=== PATIENT | male | born 1960 | race Caucasian/White ===

== ENCOUNTER 2016-05-03 19:58 | Emergency (ER) | payer BC ==
[~2016-05-03] VITALS: Ht 167.6 cm; Wt 90.9 kg
[~2016-05-03 19:58] MED LIST: ADULT LOW DOSE81 M1 PO; AMARYL2 MG PO; ARICEPT10 MG PO; ARICEPT5 MG; ASPIR-LOW81 MG PO; ATENOLOL/CHLOR1 EAC1 PO; ATENOLOL25 M1; BENTYL20 MG PO; BUSPAR15 MG PO; FENOFIBRATE160 M1 PO; FLEXERIL10 MG PO; HUMALOG100 UNIT/1 SC; HUMALOG100 UNIT/2 SC; JANUMET 50/11 TABLET; JANUMET 50/11 TABLET PO; KEFLEX500 MG PO; LANTUS 3 M100 UNITS1 SC; LISINOPRIL20 MG PO; LORTAB 5-325 M1 EACH PO; NAPROSYN500 MG PO; NIASPAN,SLO-N1000 MG PO; NIZORAL 2% CREA15 GM TP; OMEGA-31000 M1 PO; PRAVACHOL80 MG PO; PREVACID30 MG PO; PRILOSEC; PRILOSEC10 MG PO; PRINIVIL20 MG PO; SINGULAIR10 MG PO; TENORETIC 501 TABLET PO; VENTOLIN HFA18 GM IH; VITAMIN D31000 UNIT PO; ZESTRIL,PRINIV2.5 MG; ZITHROMAX Z-PA250 MG PO; ZOFRAN4 MG PO
[2016-05-03 23:26] LABS: HEMATOCRIT 39.7 % (38.0-50.0); MCH 29.7 PG (29.0-34.0); MCHC 36.8 G/DL (30.0-36.0); MCV 80.9 FL (86-99); MEAN PLAT.VOLUME 9.4 uM^3 (9.0-12.4); PLATELET COUNT 198 K/uL (156-360); RBC DIS.WIDTH-CV 11.8 % (11.8-14.6); RED BLOOD COUNT 4.91 M/uL (4.00-5.50); WHITE BLOOD COUNT 6.3 K/uL (4.1-10.2)
[2016-05-03 23:28] LABS: INFLUENZA A VIRAL ANTIGEN POSITIVE; INFLUENZA B VIRAL ANTIGEN NEGATIVE
[2016-05-03 23:37] LABS: CHLORIDE 99 mEq/L (99-109); POTASSIUM 3.9 mEq/L (3.7-5.4); SODIUM 134 mEq/L (136-147)
[2016-05-03 23:39] LABS: GLUCOSE 258 mg/dL (70-99)
[2016-05-03 23:40] LABS: ANION GAP 11 MEQ/L (2-14)
[2016-05-03 23:43] LABS: GFR ESTIMATE (CALCULATED) > 59 mL/min/
[2016-05-03 23:44] LABS: UREA NITROGEN (BUN) 17 mg/dL (9-23)
[2016-05-03 23:47] LABS: TROP-I INTERPRETATION NEGATIVE; TROPONIN-I < 0.01 ng/mL (0.0-0.30)
[2016-05-04] MEDS ORDERED: ROBITUSSIN AC,T10 ML PO (00:04)
[2016-05-04] MEDS ORDERED: MOTRIN600 MG PO (00:04)
[2016-05-04 00:34] VITALS: BP 152/85
== END 2016-05-04 00:36 | disposition home or self-care (01) ==
LOC: EXP 19:58 → EME 19:58 → EXP 05-04 00:36
PROVIDERS: Physician Assistant
DX: J10.1 Influenza due to other identified influenza virus with other respiratory manifestations (principal); E11.9 Type 2 diabetes mellitus without complications; Z79.84 Long term (current) use of oral hypoglycemic drugs; Z79.4 Long term (current) use of insulin; E78.5 Hyperlipidemia, unspecified; I10 Essential (primary) hypertension; Z85.038 Personal history of other malignant neoplasm of large intestine; Z88.7 Allergy status to serum and vaccine
CPT/HCPCS: 71020; 80048; 84484; 85027; 87502; 87651 90; 93005; 99281; 99284

== ENCOUNTER 2016-06-30 18:15 | Emergency (ER) | payer BC ==
[~2016-06-30] VITALS: Ht 170.2 cm; Wt 89.9 kg
[~2016-06-30 18:15] MED LIST changes: +MOTRIN600 MG PO; +ROBITUSSIN AC,T10 ML PO
[2016-06-30 19:18] LABS: HEMATOCRIT 46.1 % (38.0-50.0); MCH 29.5 PG (29.0-34.0); MCHC 34.5 G/DL (30.0-36.0); MCV 85.5 FL (86-99); MEAN PLAT.VOLUME 9.5 uM^3 (9.0-12.4); PLATELET COUNT 257 K/uL (156-360); RBC DIS.WIDTH-CV 11.9 % (11.8-14.6); RBC DIS.WIDTH-SD 36.5 % (39-53); RED BLOOD COUNT 5.39 M/uL (4.00-5.50); WHITE BLOOD COUNT 6.5 K/uL (4.1-10.2)
[2016-06-30 19:32] LABS: CHLORIDE 101 mEq/L (99-109); POTASSIUM 4.1 mEq/L (3.7-5.4); SODIUM 136 mEq/L (136-147)
[2016-06-30 19:34] LABS: GLUCOSE 221 mg/dL (70-99)
[2016-06-30 19:35] LABS: ANION GAP 9 MEQ/L (2-14)
[2016-06-30 19:38] LABS: GFR ESTIMATE (CALCULATED) > 59 mL/min/; UREA NITROGEN (BUN) 18 mg/dL (9-23)
[2016-06-30 19:42] LABS: TROP-I INTERPRETATION NEGATIVE; TROPONIN-I < 0.01 ng/mL (0.0-0.30)
[2016-06-30 21:19] VITALS: BP 143/90
== END 2016-06-30 21:24 | disposition home or self-care (01) ==
LOC: EME 18:15
DX: M54.12 Radiculopathy, cervical region (principal); M25.512 Pain in left shoulder; R51 Headache; I10 Essential (primary) hypertension; E11.9 Type 2 diabetes mellitus without complications; Z79.4 Long term (current) use of insulin; Z79.82 Long term (current) use of aspirin
CPT/HCPCS: 71020; 80048; 84484; 85027; 93005; 99281; 99284; J1885

== ENCOUNTER 2016-09-27 20:52 | Emergency (ER) | payer BC ==
[~2016-09-27] VITALS: Ht 167.6 cm; Wt 88.5 kg
[2016-09-27 21:33] LABS: HEMATOCRIT 43.1 % (38.0-50.0); MCH 29.4 PG (29.0-34.0); MCHC 34.8 G/DL (30.0-36.0); MCV 84.5 FL (86-99); MEAN PLAT.VOLUME 9.4 uM^3 (9.0-12.4); PLATELET COUNT 249 K/uL (156-360); RBC DIS.WIDTH-CV 11.9 % (11.8-14.6); RBC DIS.WIDTH-SD 35.9 % (39-53)
[2016-09-27 21:41] LABS: CHLORIDE 99 mEq/L (99-109); POTASSIUM 4.1 mEq/L (3.7-5.4); SODIUM 135 mEq/L (136-147)
[2016-09-27 21:42] LABS: GLUCOSE 333 mg/dL (70-99)
[2016-09-27 21:44] LABS: ANION GAP 8 MEQ/L (2-14)
[2016-09-27 21:46] LABS: GFR ESTIMATE (CALCULATED) 48 mL/min/
[2016-09-27 21:47] LABS: UREA NITROGEN (BUN) 19 mg/dL (9-23)
[2016-09-27 21:53] LABS: TROP-I INTERPRETATION NEGATIVE; TROPONIN-I < 0.01 ng/mL (0.0-0.30)
[2016-09-27 22:36] LABS: ADD MIUA? NO; BILIRUBIN NEGATIVE; BLOOD NEGATIVE; COLOR STRAW ((YELLOW)); GLUCOSE (STRIP) >=500; KETONES NEGATIVE; LEUKOCYTES NEGATIVE; NITRITE NEGATIVE; PROTEIN (STRIP) NEGATIVE; SPECIFIC GRAVITY 1.021 (1.000-1.030); UCUL ADDED? NO; UROBILINOGEN 0.2 MG/DL (0.2-1.0)
[2016-09-27] MEDS ORDERED: PERCOCET 5/31 TABLET PO (23:27)
[2016-09-27 23:40] VITALS: BP 110/73
== END 2016-09-27 23:51 | disposition home or self-care (01) ==
LOC: EME 20:52
PROVIDERS: Physician Assistant
DX: R10.32 Left lower quadrant pain (principal); E11.65 Type 2 diabetes mellitus with hyperglycemia; Z79.4 Long term (current) use of insulin; I10 Essential (primary) hypertension; Z87.442 Personal history of urinary calculi; Z90.49 Acquired absence of other specified parts of digestive tract; Z79.82 Long term (current) use of aspirin
CPT/HCPCS: 71020; 74176; 80048; 81003; 84484; 85027; 93005; 99281; 99284; J1885

== ENCOUNTER → 2016-12-24 | Outpatient (CLI) | payer BC ==
[~2016-12-24] MED LIST changes: +HYCODAN SYRUP480 ML PO; +PERCOCET 5/31 TABLET PO
== END | disposition home or self-care (01) ==
LOC: NUC 08:20
DX: R10.9 Unspecified abdominal pain (principal); R11.0 Nausea; R63.4 Abnormal weight loss
CPT/HCPCS: 78264; A9541

== ENCOUNTER 2016-12-27 02:50 | Emergency (ER) | payer BC ==
[~2016-12-27] VITALS: Ht 167.6 cm; Wt 89.0 kg
[~2016-12-27 02:50] MED LIST changes: -HYCODAN SYRUP480 ML PO
[2016-12-27] MEDS ORDERED: HYCODAN SYRUP480 ML PO (04:34)
[2016-12-27] MEDS ORDERED: ZITHROMAX Z-PA250 MG PO (04:34)
[2016-12-27 05:37] VITALS: BP 125/74
== END 2016-12-27 05:20 | disposition home or self-care (01) ==
LOC: EME 02:50
DX: J20.9 Acute bronchitis, unspecified (principal); E11.9 Type 2 diabetes mellitus without complications; E78.5 Hyperlipidemia, unspecified; I10 Essential (primary) hypertension; Z79.4 Long term (current) use of insulin; Z79.82 Long term (current) use of aspirin
CPT/HCPCS: 71020; 94640; 99281; 99284

== ENCOUNTER → 2017-01-19 | Outpatient (CLI) | payer BC ==
[~2017-01-19] MED LIST changes: +HYCODAN SYRUP480 ML PO
[2017-01-19 09:23] LABS: POINT-OF-CARE METER ID UU14107333
== END | disposition home or self-care (01) ==
LOC: AMB 08:30
PROVIDERS: Internal Medicine Gastroenterology
DX: R93.3 Abnormal findings on diagnostic imaging of other parts of digestive tract (principal); E11.9 Type 2 diabetes mellitus without complications; Z79.84 Long term (current) use of oral hypoglycemic drugs; I10 Essential (primary) hypertension; E78.2 Mixed hyperlipidemia; G47.30 Sleep apnea, unspecified; Z79.82 Long term (current) use of aspirin; Z87.891 Personal history of nicotine dependence
CPT/HCPCS: 82948; 88305; C1726; J2250; J3010

== ENCOUNTER 2017-07-25 07:30 | Emergency (ER) | payer BC ==
[~2017-07-25] VITALS: Ht 167.6 cm; Wt 85.3 kg
[2017-07-25 08:05] LABS: BASOPHIL (%) 0.8 % (0-1); BASOPHIL COUNT 0.1 K/uL (0-0.1); EOSINOPHIL (%) 6.2 % (0-5); EOSINOPHIL COUNT 0.4 K/uL (0-0.3); HEMOGLOBIN 15.5 G/DL (12.5-16.6); IMMATURE GRANULOCYTE (%) 0.2 % (0.0-0.7); LYMPHOCYTE (%) 30.8 % (15-42); MCH 30.4 PG (29.0-34.0); MCHC 35.2 G/DL (30.0-36.0); MCV 86.3 FL (86-99); MONOCYTE (%) 10.1 % (3-12); MONOCYTE COUNT 0.7 K/uL (0-0.8); NEUTROPHIL (%) 51.9 % (45-76); NEUTROPHIL COUNT 3.3 K/uL (1.8-6.4); PLATELET COUNT 294 K/uL (156-360); RBC DIS.WIDTH-CV 12.1 % (11.8-14.6); WHITE BLOOD COUNT 6.4 K/uL (4.1-10.2)
[2017-07-25 08:45] LABS: CHLORIDE 96 MEQ/L (99-109); CREATINE KINASE 133 IU/L (1-294); CREATININE 1.2 MG/DL (0.6-1.3); GFR ESTIMATE (CALCULATED) > 59 mL/min/ (58.99-99999); GLUCOSE 206 mg/dL (70-99); POTASSIUM 4.1 MEQ/L (3.7-5.4); SODIUM 134 MEQ/L (136-147); TOTAL CK 133 IU/L (1-294); UREA NITROGEN (BUN) 17 mg/dL (9-23)
[2017-07-25 10:58] LABS: CK-MB 1.3 ng/mL (0.0-4.9)
[2017-07-25] MEDS ORDERED: TYLENOL WITH C1 EACH PO (11:34)
[2017-07-25 11:55] VITALS: BP 112/68
== END 2017-07-25 12:04 | disposition home or self-care (01) ==
LOC: EME 07:30
PROVIDERS: Emergency Medicine
DX: M79.605 Pain in left leg (principal); S86.912A Strain of unspecified muscle(s) and tendon(s) at lower leg level, left leg, initial encounter; W22.8XXA Striking against or struck by other objects, initial encounter; Y92.810 Car as the place of occurrence of the external cause; E11.9 Type 2 diabetes mellitus without complications; I10 Essential (primary) hypertension
CPT/HCPCS: 73590; 80048; 82550; 82553; 85025; 93971; 99281; 99284

== ENCOUNTER 2017-08-16 00:19 | Emergency (ER) | payer BC ==
[~2017-08-16] VITALS: Ht 167.6 cm; Wt 89.7 kg
[~2017-08-16 00:19] MED LIST changes: +TYLENOL WITH C1 EACH PO
[2017-08-16 00:47] LABS: HEMATOCRIT 47.3 % (38.0-50.0); HEMOGLOBIN 16.6 G/DL (12.5-16.6); MCH 30.1 PG (29.0-34.0); MCHC 35.1 G/DL (30.0-36.0); MCV 85.7 FL (86-99); PLATELET COUNT 282 K/uL (156-360); RBC DIS.WIDTH-CV 11.9 % (11.8-14.6); RED BLOOD COUNT 5.52 M/uL (4.00-5.50)
[2017-08-16 01:03] LABS: ALBUMIN 4.8 g/dL (3.2-4.8); CHLORIDE 98 mEq/L (99-109); POTASSIUM 3.9 mEq/L (3.7-5.4); SODIUM 137 mEq/L (136-147)
[2017-08-16 01:04] LABS: APPEARANCE CLEAR ((CLEAR)); BILIRUBIN NEGATIVE; BLOOD NEGATIVE; COLOR YELLOW ((YELLOW)); GLUCOSE (STRIP) >=500; KETONES NEGATIVE; LEUKOCYTES NEGATIVE; NITRITE NEGATIVE; PROTEIN (STRIP) NEGATIVE; SPECIFIC GRAVITY 1.037 (1.000-1.030); UCUL ADDED? NO; UROBILINOGEN 0.2 MG/DL (0.2-1.0)
[2017-08-16 01:05] LABS: GLUCOSE 231 mg/dL (70-99); TOTAL PROTEIN 8.4 g/dL (6.4-8.3)
[2017-08-16 01:07] LABS: TOTAL BILIRUBIN 0.7 mg/dL (0.0-1.0)
[2017-08-16 01:09] LABS: ALKALINE PHOSPHATASE 48 IU/L (3-129); CREATININE 1.6 mg/dL (0.6-1.3); GFR ESTIMATE (CALCULATED) 48 mL/min/ (58.99-99999)
[2017-08-16 01:10] LABS: UREA NITROGEN (BUN) 29 mg/dL (9-23)
[2017-08-16 01:11] LABS: AST (GOT) 22 IU/L (2-34)
[2017-08-16 01:12] LABS: ALT (GPT) 24 IU/L (3-49); LIPASE 73 U/L (1.0-51.0)
[2017-08-16] MEDS ORDERED: ZOFRAN4 MG PO (02:48)
[2017-08-16 03:00] VITALS: BP 118/92
== END 2017-08-16 03:01 | disposition home or self-care (01) ==
LOC: EME 00:19
DX: K52.9 Noninfective gastroenteritis and colitis, unspecified (principal); N28.9 Disorder of kidney and ureter, unspecified; I10 Essential (primary) hypertension; E11.9 Type 2 diabetes mellitus without complications; Z79.4 Long term (current) use of insulin; Z79.84 Long term (current) use of oral hypoglycemic drugs; E78.5 Hyperlipidemia, unspecified; K21.9 Gastro-esophageal reflux disease without esophagitis; Z79.82 Long term (current) use of aspirin; Z85.038 Personal history of other malignant neoplasm of large intestine; Z90.49 Acquired absence of other specified parts of digestive tract; Z95.9 Presence of cardiac and vascular implant and graft, unspecified; Z88.7 Allergy status to serum and vaccine
CPT/HCPCS: 74176; 80053; 81003; 82948; 83690; 85027; 99281; 99284; J1885; J7030